=== PATIENT | male | born 1965 | race Caucasian/White ===

== ENCOUNTER → 2017-03-20 | Day surgery (SDC) | payer OTHER ==
[~2017-03-20] MED LIST: CELEXA20 MG PO; DYAZIDE 371 CAP 37.5 PO; GABAPENTIN400 M2 PO; LIPITOR20 MG PO; OXYCODONE-ACET1 EAC1 PO; ZANAFLEX4 M1 PO; ZEBETA5 MG PO
--- NOTE | ~2017-03-20 | OR ---
Unit #: [id number] #: [id number] Patient: MORALES EMANUEL [id number] [address] [place], [place] [address] [id number] O MR#: [id number] NAME: MORALES EMANUEL ROOM: Date of Procedure: 03/20/2017 Admission Date: 03/20/2017 Surgeon: Dylan Gilbert M.D. : 1965 Attending Physician: Dylan Gilbert M.D. Primary Care Physician: Mitchell House M.D. OPERATIVE REPORT PREOPERATIVE DIAGNOSES Back pain, degenerative facet disease, degenerative disk disease. POSTOPERATIVE DIAGNOSES Back pain, degenerative facet disease, degenerative disk disease. PROCEDURE PERFORMED Diagnostic and therapeutic facet injections at L3-L4, L4-L5, and L5-S1 levels with fluoroscopic guidance for needle localization. INDICATIONS FOR PROCEDURE The patient is a 51-year-old male with back pain, which is significant, not settle with conservative measures including rehab and medical management alone. Examination is consistent with the facet etiology for this. Workup did demonstrate facet disease at the L3-L4, L4-L5, and L5-S1 levels. Based on history, pathology, symptomatology, and treatment options, plan is for trial of diagnostic and hopefully therapeutic facet injections. DESCRIPTION OF PROCEDURE The patient was placed in a prone position. Standard monitors were applied. Sterile prep and drape of the lumbosacral area was performed. The skin then overlying the left L3-L4, L4-L5, and L5-S1 facet joints localized with 1% lidocaine. At each of these levels, a 22-gauge Quincke point spinal needle was advanced with fluoroscopic guidance to bring the needle tip to within the edge of the respective facet joints. After confirming this with fluoroscopy, a dose of 1 mL of a mixture of 120 mg of Depo-Medrol and 4 mL of 0.25% bupivacaine were deposited at each of the joints, 0.5 mL within the joint and 0.5 mL just outside the joint. After finishing this, the needles were flushed and removed. The exact same procedure was then repeated on the right at the L3-L4, L4-L5, and L5-S1 levels. Again using fluoroscopic guidance to confirm proper needle tip positioning, it was followed by a dose of 1 mL of the previous mentioned mixture of Depo-Medrol and Marcaine. [place] were flushed and removed. The patient was discharged to recovery room in stable condition. Dictated by... Dylan Gilbert M.D. [facility] Unit #: [id number] #: [id number] Patient: MORALES EMANUEL TD: 03/21/2017 00:25 JOB #: [id number] OPERATIVE REPORT Page 1 of 1 X Dylan Gilbert MD X PROCEDURE OPERATIVE NOTE
== END | disposition home or self-care (01) ==
LOC: CCSC 09:09
DX: M47.896 Other spondylosis, lumbar region (principal); M47.897 Other spondylosis, lumbosacral region; M51.36 Other intervertebral disc degeneration, lumbar region; M51.27 Other intervertebral disc displacement, lumbosacral region; I10 Essential (primary) hypertension
CPT/HCPCS: J1030; J1040

== ENCOUNTER → 2017-06-17 | Day surgery (SDC) | payer OTHER ==
--- NOTE | ~2017-06-17 | OR ---
Unit #: [id number] #: [id number] Patient: MORALES EMANUEL [id number] [address] [address] [id number] O MR#: [id number] NAME: MORALES EMANUEL ROOM: Date of Procedure: 06/17/2017 Admission Date: 06/17/2017 Surgeon: Dylan Gilbert M.D. : 1965 Attending Physician: Dylan Gilbert M.D. Primary Care Physician: Mitchell House M.D. OPERATIVE REPORT PREOPERATIVE DIAGNOSES Degenerative lumbar disk disease with myelopathy, back pain, and radiculopathy. POSTOPERATIVE DIAGNOSES Degenerative lumbar disk disease with myelopathy, back pain, and radiculopathy. PROCEDURE PERFORMED Lumbar epidural steroid injection with fluoroscopic guidance for needle localization. INDICATIONS FOR PROCEDURE The patient is a 51-year-old male with back and left greater than right lower extremity pain. He is not settled with conservative treatment. He does have some facet disease that do not settle greatly with facet injections. There was also some worsening of the left-sided disk bulging with nerve root contact at L5-S1 level. There is slightly less bilateral neuroforaminal narrowing at the L4-L5 again due to degenerative change. Based on history, pathology, symptomatology, response to treatment, plan is for trial of epidural steroid injection. Risks and benefits of all reviewed. DESCRIPTION OF PROCEDURE The patient was placed in a seated position. Standard monitors were applied. Sterile prep and drape of the lumbar area were performed. The skin then at the L5 level was localized with 1% lidocaine. An 18-gauge Flayrtead needle was then advanced via loss of resistance technique and fluoroscopic guidance in toward the epidural space. After confirming proper positioning with fluoroscopy and radiographic contrast, 80 mg of Depo-Medrol and 4 mL of preservative-free normal saline were deposited. The patient tolerated the procedure otherwise well and was discharged to the recovery room in stable condition. Dictated by... Dylan Gilbert M.D. LHP/modl TD: 06/17/2017 16:34 JOB #: [id number] Unit #: [id number] #: [id number] Patient: MORALES EMANUEL CC: Son Salazar M.D. OPERATIVE REPORT Page 1 of 1 X Dylan Gilbert MD X PROCEDURE OPERATIVE NOTE
== END | disposition home or self-care (01) ==
LOC: CCSC 09:11
DX: M51.06 Intervertebral disc disorders with myelopathy, lumbar region (principal); M51.16 Intervertebral disc disorders with radiculopathy, lumbar region; M99.73 Connective tissue and disc stenosis of intervertebral foramina of lumbar region; I10 Essential (primary) hypertension; E66.01 Morbid (severe) obesity due to excess calories; Z79.899 Other long term (current) drug therapy
CPT/HCPCS: J1040; J2250